=== PATIENT | female | born 1995 | race Caucasian/White ===

== ENCOUNTER 2017-04-23 19:45 | Emergency (ER) | payer SELFPAY ==
[~2017-04-23] VITALS: Ht 162.6 cm; Wt 129.2 kg
== END 2017-04-23 20:37 | disposition short-term general hospital (02) ==
LOC: ER 19:45
DX: R11.2 Nausea with vomiting, unspecified (principal); H66.91 Otitis media, unspecified, right ear; R19.7 Diarrhea, unspecified